=== PATIENT | female | born 1995 | race Two or more races ===

== ENCOUNTER 2020-07-26 07:27 | Inpatient (IN) | payer OTHER ==
[2020-07-26] MEDS: ELECTROLYTE-148 SOLN 1,000 ML IV SCH (08:30)
[2020-07-26] MEDS ORDERED: PROMETHAZINE HCL 25 MG/1 ML VIAL ONE ×2 (09:27→12:30)
[2020-07-26] MEDS ORDERED: BUTORPHANOL TARTRATE 2 MG/ML VIAL ONE (09:27)
[2020-07-26 09:31] LABS: INR 0.89 (0.83-1.09)
[2020-07-26 09:36] LABS: BASO % 0.3 % (0-2.0); EOS % 0.2 % (0-4.5); LYMPH % 15.7 % (8-40); MCH 29.7 pg (25.7-33.7); MCHC 34.2 g/dl (32.0-36.0); MEAN CELL VOLUME 86.7 fl (80-96); MEAN PLT VOLUME 7.9 fl (7.5-11.1); MONO % 4.8 % (3.8-10.2); PLATELET COUNT 200 K/MM3 (134-434); RBC 4.38 M/mm3 (3.60-5.2); RDW 14.6 % (11.6-15.6)
[2020-07-26] MEDS ORDERED: AMPICILLIN SODIUM 2 GM VIAL ONE (09:42)
[2020-07-26] MEDS ORDERED: AMPICILLIN - 2 GM in SODIUM CHLORIDE 100 ML IVPB ONE (09:44)
[2020-07-26] MEDS ORDERED: BUTORPHANOL TARTRATE 1 MG/ML VIAL IVPB ONE ×2 (09:44→12:18)
[2020-07-26] MEDS ORDERED: PROMETHAZINE HCL 25 MG/1 ML VIAL IM ONE ×2 (09:44→12:58)
[2020-07-26 09:57] LABS: POTASSIUM 3.7 mmol/L (3.5-5.1)
[2020-07-26 09:58] LABS: CALCIUM 8.9 mg/dL (8.5-10.1)
[2020-07-26 09:59] LABS: BLOOD UREA NITROGEN 6.9 mg/dL (7-18)
[2020-07-26 10:02] LABS: CREATININE 0.7 mg/dL (0.55-1.3)
[2020-07-26] MEDS ORDERED: OXYTOCIN 20 UNITS in 0.9% NS 20 UNIT/1,000 ML INFUS.BAG IV ONE (10:10)
[2020-07-26 11:49] LABS: HIV INTERPRETATION NEGATIVE (NEGATIVE)
[2020-07-26] MEDS ORDERED: BUTORPHANOL TARTRATE 1 MG/ML VIAL ONE (12:30)
[2020-07-26] MEDS ORDERED: BUTORPHANOL TARTRATE 2 MG/ML VIAL IVPB ONE (12:58)
[2020-07-26 13:28] VITALS: BMI 29.2
[2020-07-26] MEDS: AMPICILLIN - 1 GM in SODIUM CHLORIDE 100 ML IVPB SCH ×3 (13:45→22:00)
[2020-07-26] MEDS ORDERED: AMPICILLIN SODIUM 1 GM VIAL ONE ×3 (13:53→21:58)
[2020-07-26] MEDS ORDERED: FENTANYL/BUPIVACAINE/NS/PF - PCEA - 50 ML DISP.SYRIN EP ONE ×3 (13:54→22:19)
[2020-07-26] MEDS: FENTANYL/BUPIVACAINE/NS/PF - PCEA - 50 ML DISP.SYRIN EP SCH (14:15)
[2020-07-26] MEDS ORDERED: NALOXONE HCL 0.4 MG/ML VIAL IVPUSH PRN (14:28)
[2020-07-26] MEDS ORDERED: OXYTOCIN 30 UNITS in 0.9% NS 30 UNIT/500 ML INFUS.BAG IVPB ONE (14:49)
[2020-07-26] MEDS: OXYTOCIN 30 UNITS in 0.9% NS 30 UNIT/500 ML INFUS.BAG IVPB SCH (14:55)
[2020-07-26] MEDS ORDERED: PCA PUMP NR ONE (22:19)
[2020-07-27] MEDS: AMPICILLIN - 1 GM in SODIUM CHLORIDE 100 ML IVPB SCH ×3 (02:00→11:18)
[2020-07-27] MEDS ORDERED: AMPICILLIN SODIUM 1 GM VIAL ONE (02:01)
[2020-07-27] MEDS ORDERED: FENTANYL/BUPIVACAINE/NS/PF - PCEA - 50 ML DISP.SYRIN EP ONE (02:22)
[2020-07-27] MEDS ORDERED: OXYTOCIN 20 UNITS in 0.9% NS 20 UNIT/1,000 ML INFUS.BAG IV ONE (03:24)
[2020-07-27] MEDS ORDERED: LIDOCAINE HCL 1% PRESERVATIVE FREE - 30ML VIAL ONE (03:24)
[2020-07-27] MEDS ORDERED: BENZOCAINE 20% 57 GM BOTTLE TP PRN (04:58)
[2020-07-27] MEDS ORDERED: WITCH HAZEL 50% (TUCKS) 40 PAD/JAR PAD TP PRN (04:58)
[2020-07-27] MEDS ORDERED: METHYLERGONOVINE MALEATE 0.2 MG/1 ML AMP IM PRN (04:58)
[2020-07-27] MEDS ORDERED: BISACODYL 10 MG SUPP.RECT RC PRN (04:58)
[2020-07-27] MEDS ORDERED: BENZOCAINE 28 GM HEMORRHOIDAL OINTMENT TP PRN (04:58)
[2020-07-27] MEDS ORDERED: OXYTOCIN 20 UNITS in 0.9% NS 20 UNIT/1,000 ML INFUS.BAG IV SCH (05:00)
[2020-07-27] MEDS ORDERED: IBUPROFEN 600 MG TABLET (FP) PO ONE ×2 (05:46→12:36)
[2020-07-27] MEDS ORDERED: ACETAMINOPHEN 325 MG TABLET (FP) ONE ×2 (05:47→12:36)
[2020-07-27] MEDS: IBUPROFEN 600 MG TABLET (FP) PO PRN ×3 (05:50→20:14)
[2020-07-27] MEDS: ACETAMINOPHEN 325 MG TABLET (FP) PO PRN ×3 (05:50→20:15)
[2020-07-27] MEDS: ELECTROLYTE-148 SOLN 1,000 ML IV SCH (11:18)
[2020-07-27] MEDS: PRENATAL VITAMINS W/ FOLIC ACID TABLET (FP) PO SCH (11:30)
[2020-07-27] MEDS ORDERED: PRENATAL VITAMINS W/ FOLIC ACID TABLET (FP) PO ONE (12:37)
[2020-07-27] MEDS: OXYTOCIN 30 UNITS in 0.9% NS 30 UNIT/500 ML INFUS.BAG IVPB SCH (14:51)
[2020-07-27] MEDS: FENTANYL/BUPIVACAINE/NS/PF - PCEA - 50 ML DISP.SYRIN EP SCH (14:52)
[2020-07-28] MEDS: IBUPROFEN 600 MG TABLET (FP) PO PRN ×2 (08:01→20:22)
[2020-07-28 09:03] LABS: BASO % 0.2 % (0-2.0); EOS % 0.8 % (0-4.5); HEMATOCRIT 37.8 % (32.4-45.2); HEMOGLOBIN 12.7 GM/dL (10.7-15.3); LYMPH % 25.4 % (8-40); MCH 29.4 pg (25.7-33.7); MCHC 33.5 g/dl (32.0-36.0); MEAN CELL VOLUME 87.6 fl (80-96); MEAN PLT VOLUME 7.6 fl (7.5-11.1); MONO % 3.1 % (3.8-10.2); NEUT % 70.5 % (42.8-82.8); PLATELET COUNT 179 K/MM3 (134-434); RBC 4.31 M/mm3 (3.60-5.2); RDW 15.2 % (11.6-15.6); WHITE BLOOD COUNT 11.9 K/mm3 (4.0-10.0)
[2020-07-28] MEDS: PRENATAL VITAMINS W/ FOLIC ACID TABLET (FP) PO SCH (09:52)
[2020-07-28] MEDS: ELECTROLYTE-148 SOLN 1,000 ML IV SCH (09:52)
[2020-07-28] MEDS: ACETAMINOPHEN 325 MG TABLET (FP) PO PRN (20:23)
[2020-07-28] MEDS ORDERED: SENNOSIDES/DOCUSATE COMBO (SENNA PLUS) TABLET (UD) PO PRN (22:00)
[2020-07-29] MEDS: ACETAMINOPHEN 325 MG TABLET (FP) PO PRN (08:35)
[2020-07-29] MEDS: IBUPROFEN 600 MG TABLET (FP) PO PRN (08:35)
[2020-07-29] MEDS: PRENATAL VITAMINS W/ FOLIC ACID TABLET (FP) PO SCH (10:11)
[2020-07-29 13:37] VITALS: BP 104/62; PULSE 61; TEMP 97.6
== END 2020-07-29 13:10 | disposition home or self-care (01) | DRG 560 ==
LOC: JLDR 07:27 → J3W 07-27 15:17
PROVIDERS: ADMIT Obstetrics & Gynecology; ATTEND Obstetrics & Gynecology
PROC: 10E0XZZ Delivery of Products of Conception, External Approach (ICD-10-PCS; principal; 2020-07-27)
PROC: 0KQM0ZZ Repair Perineum Muscle, Open Approach (ICD-10-PCS; 2020-07-27)
PROC: 0W8NXZZ Division of Female Perineum, External Approach (ICD-10-PCS; 2020-07-27)
DX: O42.02 Full-term premature rupture of membranes, onset of labor within 24 hours of rupture (principal); O48.0 Post-term pregnancy; O70.1 Second degree perineal laceration during delivery; O99.824 Streptococcus B carrier state complicating childbirth; Z3A.40 40 weeks gestation of pregnancy; Z37.0 Single live birth; Z86.19 Personal history of other infectious and parasitic diseases
CPT/HCPCS: 36415; 59409; 80048; 85025; 85610; 85730; 86780; 86850; 86900; 86901; 87389